=== PATIENT | female | born 1985 | race Caucasian/White ===

== ENCOUNTER 2018-04-28 00:15 | Outpatient (CLI) | payer OTHER | END 2018-04-28 08:16 | disposition left against medical advice (07) | LOC: OBS/DEL 00:15 → LDR 00:42 → OBS/DEL 02:00 | DX: O26.893 Other specified pregnancy related conditions, third trimester (principal); R10.2 Pelvic and perineal pain; Z34.03 Encounter for supervision of normal first pregnancy, third trimester ==

== ENCOUNTER 2018-04-30 07:04 | Inpatient (IN) | payer OTHER ==
[~2018-04-30] VITALS: Ht 160 cm; Wt 72.1 kg
[2018-04-30] MEDS ORDERED: PRENATAL FORMU1 EAC1 PO (09:23)
== END 2018-05-02 10:30 | disposition home or self-care, planned readmission (81) | DRG 807 ==
LOC: LDR 07:04 → SURG-SUITE 15:13
PROC: 10E0XZZ Delivery of Products of Conception, External Approach (ICD-10-PCS; principal; 2018-04-30)
PROC: 0HQ9XZZ Repair Perineum Skin, External Approach (ICD-10-PCS; 2018-04-30)
PROC: 4A1HXCZ Monitoring of Products of Conception, Cardiac Rate, External Approach (ICD-10-PCS; 2018-04-30)
PROC: 4A033R1 Measurement of Arterial Saturation, Peripheral, Percutaneous Approach (ICD-10-PCS; 2018-04-30)
PROC: 3E033VJ Introduction of Other Hormone into Peripheral Vein, Percutaneous Approach (ICD-10-PCS; 2018-04-30)
DX: O70.1 Second degree perineal laceration during delivery (principal); Z37.0 Single live birth; Z3A.39 39 weeks gestation of pregnancy

== ENCOUNTER 2021-08-03 09:32 | Inpatient (IN) | payer OTHER ==
[~2021-08-03] VITALS: Ht 160 cm; Wt 70.8 kg
[~2021-08-03 09:32] MED LIST: PRENATAL FORMU1 EAC1 PO
[2021-08-03] MEDS ORDERED: AZELASTINE205.5 MCG/ (10:50)
== END 2021-08-05 12:50 | DRG 807 ==
LOC: LDR 09:32 → SURG-SUITE 15:37
PROVIDERS: ADMIT Obstetrics & Gynecology; ATTEND Obstetrics & Gynecology
PROC: 10E0XZZ Delivery of Products of Conception, External Approach (ICD-10-PCS; principal; 2021-08-03)
PROC: 0UQGXZZ Repair Vagina, External Approach (ICD-10-PCS; 2021-08-03)
PROC: 4A1HXCZ Monitoring of Products of Conception, Cardiac Rate, External Approach (ICD-10-PCS; 2021-08-03)
PROC: 3E033VJ Introduction of Other Hormone into Peripheral Vein, Percutaneous Approach (ICD-10-PCS; 2021-08-03)
DX: O71.4 Obstetric high vaginal laceration alone (principal); Z37.0 Single live birth; Z3A.39 39 weeks gestation of pregnancy; Z20.822 Contact with and (suspected) exposure to COVID-19

== ENCOUNTER → 2021-10-14 08:00 | Outpatient (CLI) | payer OTHER ==
[~2021-10-14 08:00] MED LIST changes: +AZELASTINE205.5 MCG/
== END | disposition home or self-care (01) ==
LOC: LAB 08:00 → ADM 09:15 → CIR.AMB 10-18 08:45 → EDSTATUS 10-18 09:15 → CIR.AMB 10-18 09:15
PROVIDERS: ATTEND Obstetrics & Gynecology
DX: N70.91 Salpingitis, unspecified (principal); Z01.812 Encounter for preprocedural laboratory examination; Z20.822 Contact with and (suspected) exposure to COVID-19

== ENCOUNTER 2022-08-08 08:20 | Day surgery (SDC) | payer OTHER | END 2022-08-08 18:45 | disposition home or self-care (01) | LOC: CIR.AMB 08:20 | PROVIDERS: ATTEND Obstetrics & Gynecology | DX: N70.91 Salpingitis, unspecified (principal); R10.2 Pelvic and perineal pain; Z20.822 Contact with and (suspected) exposure to COVID-19; I10 Essential (primary) hypertension; E03.9 Hypothyroidism, unspecified; E78.00 Pure hypercholesterolemia, unspecified; Z88.0 Allergy status to penicillin; Z91.011 Allergy to milk products ==